=== PATIENT | female | born 1995 | race Caucasian/White ===

== ENCOUNTER 2017-07-19 08:05 | Emergency (ER) | payer OTHER ==
[~2017-07-19] VITALS: Ht 160 cm; Wt 50.7 kg
[2017-07-19 08:13] VITALS: BP 116/82; PULSE 79; TEMP 36.4; O2SAT 99; Ht 160 cm; Wt 50.7 kg
--- NOTE | 2017-07-19 16:12 | EMERGENCY ROOM VISIT NOTE ---
ED Visit Note First contact with patient: 08:19 Chief complaint: Requesting rabies vaccine HPI: This 22-year-old [place] female presents for a rabies vaccination injection. Patient states she was bitten by a bulldog puppy in [place] on July 12. She states she was given 2 rabies vaccine injections on that day. She was told to have her next injection done on July 19. She states the dog is up-to-date on its vaccinations, including rabies. She is not sure why she required vaccination. The palpebral lungs to [address] friend in [place]. She is currently here in [facility] visiting for a friend's wedding. She denies any redness or warmth from the dog bite area. It is on her right calf. No other complaints. REVIEW OF SYSTEM: HEENT: No dizziness, visual problems, hearing loss, or tinnitus. There is no difficulty swallowing and no oral lesions are present. LYMPH: No adenopathy. PULMONARY: No cough, shortness of breath, sputum production or hemoptysis. CARDIOVASCULAR: No chest pain, palpitations, shortness of breath or peripheral edema. GASTROINTESTINAL: No diarrhea, constipation, nausea, vomiting, or abdominal pain. GENITOURINARY: No dysuria, frequency, urgency or nocturia. NEUROLOGIC: No weakness, muscle tenderness, epilepsy or history of neurological problems. MUSCULOSKELETAL: No history of joint tenderness/swelling. No history of arthritis or arthralgias. SKIN: No rashes or lesions. ENDOCRINE: No history of diabetes, thyroid disorders, or abnormal hair growth. Surgical history: None Medical history: Benign Current medications: None Allergies: NKDA Social history: Lives in [place]. Single. Lives by herself. Unemployed. She is visiting for a friend's wedding. Daily tobacco use. Occasional EtOH use. Vitals: Afebrile. Reviewed and filed in patient's chart General: Well-developed, well-nourished, young female, in no acute distress. She is sitting on the bed. Alert and oriented. Skin:Warm and dry with good turgor. No rashes or lesions. No ecchymosis or erythema. The patient is not diaphoretic. Small scab present on her right calf. No signs of infection. It is very small. Nontender to touch. Musculoskeletal: Full motion of the knee and ankle without discomfort. Impression: Dog bite right calf Plan: Patient was educated regarding today's findings. Conservative care measures were discussed. I am not sure why she had the rabies vaccine given as the old dog is up-to-date on its rabies vaccine. I did have her call [place] while here in the ED to confirm with her friend. She verbalizes that it is up- to-date on its vaccination. I did look at her vaccination schedule from [place]. She was given 2 rabies vaccinations on day 0 and did not have any on day 3. She is now on day 7. I do not know what type of medication she was given in [place]. She is not sure. Given that the dog is up-to-date and is still living and healthy, I do not think she requires vaccination. This was discussed at length with her. She is in agreement. Tylenol as needed for any discomfort. Keep the wound clean with soap and water and cover with Triple Antibiotic ointment until healed. Return to the nearest ER for any signs of allergic reaction or signs of infection. Current/Historical Medications No Active Prescriptions or Reported Meds Allergies Coded Allergies: No Known Allergies (Unverified , 07/19/17) Vital Signs Date Time Temp Pulse Resp B/P (MAP) Pulse Ox O2 Delivery O2 Flow Rate FiO2 07/19/17 08:13 36.4 79 15 116/82 99 Room Air 07/19/17 08:08 36.4 79 15 116/82 99 Room Air Departure Information Impression Primary Impression: Dog bite of right lower leg Dispostion Home / Self-Care Prescriptions No Active Prescriptions or Reported Meds Forms WORK / SCHOOL INSTRUCTIONS, HOME CARE DOCUMENTATION FORM, IMPORTANT VISIT INFORMATION Patient Instructions My [facility] Additional Instructions Keep the area clean with soap and water Cover with Triple Antibiotic ointment if needed Further vaccination is not needed as the dog is up-to-date on its rabies vaccine
== END 2017-07-19 08:57 | disposition home or self-care (01) ==
LOC: C.EDB 08:08 → C.EDA 08:57
DX: Z20.3 Contact with and (suspected) exposure to rabies (principal); Z23 Encounter for immunization; S81.851D Open bite, right lower leg, subsequent encounter; W54.0XXD Bitten by dog, subsequent encounter